=== PATIENT | male | born 1975 | race Two or more races ===

== ENCOUNTER 2023-07-13 01:30 | Inpatient (IN) | payer OTHER ==
[~2023-07-13] VITALS: Ht 170.2 cm; Wt 93.0 kg
[2023-07-13] MEDS ORDERED: BENICAR20 MG (02:14)
[2023-07-13 05:16] LABS: HEMATOCRIT 41.1 % (39.0-48.0); MEAN CELL VOLUME 88.9 fL (80.0-100.00); MEAN CORPUSCULAR HEMOGLOBIN 30.3 pg (27.00-32.0); PLATELET COUNT 245 K/uL (150-450); RED BLOOD COUNT 4.63 M/uL (4.00-6.00); RED CELL DISTRIBUTION WIDTH 13.4 % (11.5-14.5)
[2023-07-13 05:36] LABS: CALCIUM 9.5 mg/dL (8.5-10.1); CREATININE SERUM 0.86 mg/dL (0.70-1.30); GFR 94.91; POTASSIUM 4.32 mEq/L (3.5-5.1)
[2023-07-13 06:47] LABS: PH,URINE 5.5 (5.0-8.0); URINE APPEARANCE Clear; URINE BILIRRUBIN Negative (NEGATIVE); URINE BLOOD Negative; URINE COLOR Yellow; URINE GLUCOSE Negative (NEGATIVE); URINE LEUKOCYTE Negative; URINE NITRATE Negative; URINE PROTEIN Negative (NEGATIVE); URINE UROBILINOGEN 0.2 E.U./dl
[2023-07-13 06:48] LABS: URINE BACTERIA 1.2 uL (0.0-1933); URINE EPITHELIAL CELLS 0.1 uL (0.0-38.8); URINE RBC 1.8 uL (0.0-20.8); URINE WBC 1.8 uL (0.0-23.2)
[2023-07-13 19:31] LABS: INR 1.07; PARTIAL THROMBOPLASTIN TIME 36.2 SECONDS (22.0-34.0); PROTHROMBIN TIME 11.2 SECONDS (9.0-11.5)
[2023-07-15 06:13] LABS: HEMATOCRIT 36.1 % (39.0-48.0); HEMOGLOBIN 12.2 g/dL (13-16.00); MEAN CELL VOLUME 88.4 fL (80.0-100.00); MEAN CORPUSCULAR HGB CONC 33.9 g/dl (32.0-36.0); PLATELET COUNT 200 K/uL (150-450); RED BLOOD COUNT 4.09 M/uL (4.00-6.00); RED CELL DISTRIBUTION WIDTH 13.5 % (11.5-14.5)
[2023-07-15 07:04] LABS: ALBUMIN 3.1 gm/dL (3.4-5.0); BILIRUBIN TOTAL 0.8 mg/dL (0.3-1.2); CALCIUM 8.9 mg/dL (8.5-10.1); CREATININE SERUM 0.64 mg/dL (0.70-1.30); GFR 133.48; GLOBULINA 3.3 G/DL (2.4-3.5); MAGNESIUM 2.6 mg/dL (1.8-2.4); PHOSPHOROUS 2.7 mg/dL (2.5-4.9); POTASSIUM 4.17 mEq/L (3.5-5.1); TOTAL PROTEIN 6.4 gm/dL (6.4-8.2)
[2023-07-15 07:05] LABS: C-REACTIVE PROTEIN 19.8 MG/DL (0.00-0.29)
== END 2023-07-18 14:58 | disposition home or self-care (01) | DRG 392 ==
LOC: ER 01:31 → MEDJ 18:59
PROVIDERS: General Practice; Internal Medicine Infectious Disease; ADMIT Internal Medicine; ATTEND Internal Medicine
PROC: BW21YZZ Computerized Tomography (CT Scan) of Abdomen and Pelvis using Other Contrast (ICD-10-PCS; principal; 2023-07-13)
DX: K57.32 Diverticulitis of large intestine without perforation or abscess without bleeding (principal); K80.20 Calculus of gallbladder without cholecystitis without obstruction; I10 Essential (primary) hypertension; Z20.822 Contact with and (suspected) exposure to COVID-19